=== PATIENT | male | born 1990 | race African-American/Black ===

== ENCOUNTER 2016-03-24 08:58 | Emergency (ER) | payer SELFPAY ==
[2016-03-24 09:41] LABS: Bilirubin Negative (Negative); Blood, Urine Negative (Negative); Clarity Clear (Clear); Glucose, Urine (Dipstick) Negative (Negative); Icto Negative (Negative); Leukocyte Small (Negative); Nitrite Negative (Negative); Protein, Urine (Dipstick) Negative (Neg-Trace); Specific Gravity, Urine 1.025 (1.005-1.030); Urobilinogen 0.2 mg/dL (0.2-1.0)
[2016-03-24 09:42] LABS: Bacteria/HPF Rare-Few HPF (None Seen); Other Microscopic Description C&S SET UP; RBC/HPF 0-3 HPF (0-3); Squamous Epithelial 0-3 HPF (0-3)
[2016-03-24] MEDS ORDERED: Phenazopyridine HCl 97.5 MG TABLET ONE (09:51)
[2016-03-24] MEDS ORDERED: Sulfameth/Trimethoprim DS 800-160mg TAB ONE (09:51)
--- NOTE | 2016-03-24 10:08 | ERRECORD ---
[facility] EMERGENCY RECORD HPI UTI (09:16 LLDO) CHIEF COMPLAINT: Patient presents for evaluation of urinary tract infection signs or symptoms:, dysuria, frequency, Patient presents for evaluation of started this morning. pt has hx uti. HISTORIAN: History provided by patient. LOCATION: Symptoms are localized, most severe to only dysuria at end of penis. QUALITY: Pain is dull in nature, described as BURNING. SEVERITY: Maximum severity of symptoms moderate, Currently symptoms are moderate. TIME COURSE: Sudden onset of symptoms, Symptoms are worsening, are intermittent. ASSOCIATED WITH: No associated symptoms, Denies any other complaints. EXACERBATED BY: Patient's condition exacerbated by urination. RELIEVED BY: Patient's condition relieved by nothing, Patient's condition relieved by nothing because patient has not tried anything for relief. ROS CONSTITUTIONAL: Negative constitutional review of systems. (09:18 LLDO) EYES: Negative eye review of systems, Historian denies eye pain, denies eye redness, denies eye discharge. (09:21 LLDO) ENT: Negative ears, nose, throat review of systems, Historian denies otalgia, denies rhinorrhea, denies sinus pain, denies sore throat. (09:21 LLDO) GENITOURINARY MALE: Historian reports dysuria, denies penile discharge, reports urinary frequency. IN HPI. (09:18 LLDO) MUSCULOSKELETAL: Negative musculoskeletal review of systems, Historian denies arthralgias, denies fall, denies injury, denies myalgias. (09:21 LLDO) NEUROLOGIC: Negative neurologic review of systems, Historian denies confusion, denies focal weakness, denies mental status changes, denies sensory changes. (09:21 LLDO) ALLERGIC/IMMUNOLOGIC: Normal allergy/immunologic system review, Historian denies eczema, denies environmental allergies, denies food allergies. (09:21 LLDO) PSYCHIATRIC: Negative psychiatric review of systems, Historian denies alcohol abuse, denies anxiety, denies depression, denies drug abuse, denies hallucinations. (09:21 LLDO) NOTES: All systems reviewed, negative except as described above. (09:18 LLDO) PAST MEDICAL HISTORY MEDICAL HISTORY: Past medical history includes cardiac history, unspecified arrhythmia, TACHYCARDIA. (09:11 SCHI) MALE SURGICAL HISTORY: Patient has no surgical history. (09:11 SCHI) &a-1R&a+25V*p+0X*l5998B*c202B*c15G*c2P*p-0X&a-25V&a+1R Name: Meeta Valenzuela : 1990 M26 MedRec: [id number] AcctNum: [id number] Prepared: Emilie Mar 24, 2016 23:45 by Interface Page 1 of 3 pMD [facility] EMERGENCY RECORD PSYCHIATRIC HISTORY: Notes: DENIES. (09:11 SCHI) SOCIAL HISTORY: Patient denies alcohol use, Patient denies drug use, Patient currently uses tobacco, smokes cigarettes, daily, Lives at home, with family. (09:11 SCHI) NOTES: Nursing records reviewed, Agree with nursing records, Medication list reviewed. (09:21 LLDO) KNOWN ALLERGIES No Known Drug Allergies CURRENT MEDICATIONS (09:08 SCHI) None VITAL SIGNS (09:05 SCHI) VITAL SIGNS: BP: 116/61, Pulse: 57, Resp: 18, Temp: 97.2 (Tympanic), Pain: 0, O2 sat: 100 on Room Air, Time: 03/24/2016 09:05. PHYSICAL EXAM CONSTITUTIONAL: Vital signs reviewed, Patient afebrile, Pulse normal, Blood pressure normal, Respiratory rate normal, Patient appears, uncomfortable, Patient appears in pain, in moderate pain distress, INTERMITTENT, Patient alert and oriented to person, place and time. (09:20 LLDO) HEAD: Head exam normal, Head exam included findings of head atraumatic, normocephalic. (09:21 LLDO) EYES: Eye exam normal, Eye exam included findings of eyelids normal to inspection, Pupils equally round and reactive to light, Extraocular muscles intact. (09:21 LLDO) ENT: ENT exam normal, Ear exam normal, Nose exam normal. (09:21 LLDO) NECK: Neck exam normal, Neck exam included findings of normal range of motion, Trachea midline, no meningeal signs, no tenderness. (09:21 LLDO) GENITOURINARY MALE: Genitourinary exam included findings of penis abnormal, tiny amt of inflammation at meatus. (09:20 LLDO) BACK: Back exam normal, Back exam included findings of normal inspection, range of motion normal. (09:21 LLDO) UPPER EXTREMITY: Upper extremity exam normal, Upper extremity exam included findings of inspection normal, Range of motion normal. (09:21 LLDO) LOWER EXTREMITY: Lower extremity exam normal, Lower extremity exam included findings of inspection normal, Range of motion normal. (09:21 LLDO) NEURO: Neuro exam normal, Neuro exam findings include patient oriented to person, place and time, Speech normal, Yisel coma scale 15. (09:21 LLDO) SKIN: Skin exam normal, Skin exam included findings of skin warm, dry, and normal in color, no rash. (09:21 LLDO) &a-1R&a+25V*p+0X*g5630F*c202B*c15G*c2P*p-0X&a-25V&a+1R Name: Meeta Valenzuela : 1990 M26 MedRec: [id number] AcctNum: [id number] Prepared: [facility] Mar 24, 2016 23:45 by Interface Page 2 of 3 pMD [facility] EMERGENCY RECORD PSYCHIATRIC: Psychiatric exam normal, Psychiatric exam included findings of patient oriented to person place and time, Normal affect, Judgment normal. (09:21 LLDO) MEDICATION ADMINISTRATION SUMMARY Drug Name: Septra DS, Dose Ordered: 1 tab(s), Route: Oral, Status: Given, Time: 09:52 03/24/2016, Drug Name: Pyridium, Dose Ordered: 200 mg, Route: Oral, Status: Given, Time: 09:52 03/24/2016, Detailed record available in Medication Service section. PROBLEM LIST No recorded problems DIAGNOSIS (:49 LLDO) FINAL: PRIMARY: UTI SITE NOT SPECIFIED. PRESCRIPTION (09:49 LLDO) Pyridium: TABLET : 100 mg : ORAL : Quantity: 1 Unit: tab(s) Route: ORAL Schedule: every 8 hours PRN Dispense: 15 Unit: tab(s) May substitute. Refills: 1 . Septra DS: TABLET : 800 mg-160 mg : ORAL : Quantity: 1 Unit: tab(s) Route: ORAL Schedule: 2 times a day (before meals) Dispense: 20 Unit: tab(s) May substitute. Refills: No Refills . DISPOSITION PATIENT: Disposition Type: Discharge, Disposition: *Discharge Home. (09:49 MARCOS) Patient left the department. (09:58 JUAN J) Woods: MARCOS=MD Kathy, Rj ARITA=SHILPI Huerta, Slinda &a-1R&a+25V*p+0X*p9445V*c202B*c15G*c2P*p-0X&a-25V&a+1R Name: Meeta Valenzuela : 1990 M26 MedRec: [id number] AcctNum: [id number] Prepared: Emilie Mar 24, 2016 23:45 by Interface Page 3 of 3 pMD MTDD
--- NOTE | 2016-03-24 10:13 | PICIS ---
[facility] [place] EMERGENCY RECORD TRIAGE (MonMar 24, 2016 09:08 SCHI) TRIAGE NOTES: BURNING WITH URINIATION THIS MORNING. (MonMar 24, 2016 09:08 SCHI) PATIENT: NAME: Meeta Valenzuela, AGE: 26, GENDER: male, : Mon1990, TIME OF GREET: MonMar 24, 2016 08:58, PREFERRED LANGUAGE: [place], ETHNICITY: Not or , FALL RISK: YES, ECODE BILLING MAP: [facility], SSN: [id number], Zip Code: [address], KG WEIGHT: 56.70, PHONE: , , , PERSON ID: [id number], PCP: NONE. (MonMar 24, 2016 09:08 SCHI) COMPLAINT: POSS UTI. (MonMar 24, 2016 09:08 SCHI) ADMISSION: URGENCY: 4 Non Urgent, ADMISSION SOURCE: Home, TRANSPORT: Walk-in, BED: ED -03. (MonMar 24, 2016 09:08 SCHI) ASSESSMENT: Assessment: ALERT AND ORIENTED X 4, SKIN WARM AND DRY RESP EVEN AND UNLABORED,, Symptoms began MAYBE 1 WK. (09:11 SCHI) TRIAGE SCREENING: Patient denies suicidal ideation, Patient denies presence of domestic violence. (09:11 SCHI) PROVIDERS: TRIAGE NURSE: [place] Huerta RN. (MonMar 24, 2016 09:08 SCHI) VITAL SIGNS: BP 116/61, Pulse 57, Resp 18, Temp 97.2, (Tympanic), Pain 0, O2 Sat 100, on Room Air, Time 03/24/2016 09:05. (09:05 SCHI) PREVIOUS VISIT ALLERGIES: NKDA. (MonMar 24, 2016 09:08 SCHI) NKDA. (09:11 SCHI) KNOWN ALLERGIES No Known Drug Allergies CURRENT MEDICATIONS (:08 SCHI) None VITAL SIGNS (09:05 SCHI) VITAL SIGNS: BP: 116/61, Pulse: 57, Resp: 18, Temp: 97.2 (Tympanic), Pain: 0, O2 sat: 100 on Room Air, Time: 03/24/2016 09:05. NURSING ASSESSMENT: GENITOURINARY (09:18 SCHI) CONSTITUTIONAL: Patient arrives ambulatory, Gait steady, History obtained from patient, Patient appears comfortable, Patient cooperative, Patient alert, Oriented to person, place and time, Skin warm, Skin dry, Skin normal in color, Mucous membranes pink, Mucous membranes moist, Patient is well-groomed, Patient complains of , BURNING WITH URINATION. GENITOURINARY MALE: Associated with urinary complaints described as, burning. ABDOMEN: Abdomen soft, non-tender, no associated nausea. NOTES: Emotional support needed and given, Patient tolerated procedure well. SAFETY: Side rails up, Cart/Stretcher in lowest position, Family at bedside, Hospital ID band on. NURSING PROCEDURE: DISCHARGE NOTE (09:55 SCHI) &a-1R&a+25V*p+0X*g3883Y*c202B*c15G*c2P*p-0X&a-25V&a+1R Name: Meeta Valenzuela : 1990 M26 MedRec: [id number] AcctNum: [id number] Prepared: Emilie Mar 24, 2016 23:50 by Interface Page [address] [facility] [place] EMERGENCY RECORD DISCHARGE: Patient discharged to home, ambulating without assistance, driving self, unaccompanied, Summary of Care printed/ provided, Patient requested and was provided an electronic copy of Discharge Instructions, Transition record given to patient, Discharge instructions given to patient, Simple or moderate discharge teaching performed, Prescriptions given and instructions on side effects given, Medication reconciliation form given, Above person(s) verbalized understanding of discharge instructions and follow-up care, Patient treated and evaluated by physician. BELONGINGS: Belongings and valuables with patient at time of discharge include:, Belongings remain with patient, Valuables remain with patient. NOTES: Emotional support needed and given, Patient tolerated procedure well. Notes: PT IMPROVED, PT ENCOURAGED TO RETURN TO ER WITH NEW OR WORSENING SYMPTOMS. SAFETY: Side rails up, Cart/Stretcher in lowest position, Family at bedside, Hospital ID band on. ORDER DETAILS Order Name: Culture, Urine, Status: Active, Time: 09:24 03/24/2016, User: MARCOS, - Ordered for: MD Chavez Lloyd, - Entered by: MD Chavez Lloyd - [facility] Mar 24, 2016 09:24, - Quantity: 1, Order Name: Urinalysis w/ Rflx Microscopic, Status: Active, Time: 09:24 03/24/2016, User: LL, - Ordered for: MD Chavez Lloyd, - Entered by: MD Chavez Lloyd - [facility] Mar 24, 2016 09:24, - Quantity: 1. MEDICATION ADMINISTRATION SUMMARY Drug Name: Septra DS, Dose Ordered: 1 tab(s), Route: Oral, Status: Given, Time: 09:52 03/24/2016, Drug Name: Pyridium, Dose Ordered: 200 mg, Route: Oral, Status: Given, Time: 09:52 03/24/2016, Detailed record available in Medication Service section. MEDICATION SERVICE (09:52 LLDO) Pyridium: Order: Pyridium (phenazopyridine HCl) - Dose: 200 mg : Oral Schedule: Now Ordered by: Rj Chavez MD Entered by: Rj Chavez MD [facility] Mar 24, 2016 09:48 , Acknowledged by: [place] Huerta RN [facility] Mar 24, 2016 09:50 Documented as given by: [place] Huerta RN [facility] Mar 24, 2016 09:52 Patient, Medication, Dose, Route and Time verified prior to administration. &a-1R&a+25V*p+0X*s4306H*c202B*c15G*c2P*p-0X&a-25V&a+1R Name: Meeta Valenzuela : 1990 M26 MedRec: [id number] AcctNum: [id number] Prepared: MonMar 24, 2016 23:50 by Interface Page [address] [facility] [place] EMERGENCY RECORD Site: Medication administered P.O., Correct patient, time, route, dose and medication confirmed prior to administration, Patient advised of actions and side-effects prior to administration, Allergies confirmed and medications reviewed prior to administration. Septra DS: Order: Septra DS (sulfamethoxazole/trimethoprim) - Dose: 1 tab(s) : Oral Schedule: Now Ordered by: Rj Chavez MD Entered by: Rj Chavez MD [facility] Mar 24, 2016 09:48 , Acknowledged by: [place] Huerta RN [facility] Mar 24, 2016 09:50 Documented as given by: [place] Huerta RN [facility] Mar 24, 2016 09:52 Patient, Medication, Dose, Route and Time verified prior to administration. Site: Medication administered P.O., Correct patient, time, route, dose and medication confirmed prior to administration, Patient advised of actions and side-effects prior to administration, Allergies confirmed and medications reviewed prior to administration. HPI UTI (09:16 LLDO) CHIEF COMPLAINT: Patient presents for evaluation of urinary tract infection signs or symptoms:, dysuria, frequency, Patient presents for evaluation of started this morning. pt has hx uti. HISTORIAN: History provided by patient. LOCATION: Symptoms are localized, most severe to only dysuria at end of penis. QUALITY: Pain is dull in nature, described as BURNING. SEVERITY: Maximum severity of symptoms moderate, Currently symptoms are moderate. TIME COURSE: Sudden onset of symptoms, Symptoms are worsening, are intermittent. ASSOCIATED WITH: No associated symptoms, Denies any other complaints. EXACERBATED BY: Patient's condition exacerbated by urination. RELIEVED BY: Patient's condition relieved by nothing, Patient's condition relieved by nothing because patient has not tried anything for relief. ROS CONSTITUTIONAL: Negative constitutional review of systems. (09:18 LLDO) EYES: Negative eye review of systems, Historian denies eye pain, denies eye redness, denies eye discharge. (09:21 LLDO) ENT: Negative ears, nose, throat review of systems, Historian denies otalgia, denies rhinorrhea, denies sinus pain, denies sore throat. (09:21 LLDO) GENITOURINARY MALE: Historian reports dysuria, denies penile discharge, reports urinary frequency. IN HPI. (09:18 LLDO) MUSCULOSKELETAL: Negative musculoskeletal review of systems, Historian denies arthralgias, denies fall, denies injury, denies &a-1R&a+25V*p+0X*a1709K*c202B*c15G*c2P*p-0X&a-25V&a+1R Name: Meeta Valenzuela : 1990 M26 MedRec: [id number] AcctNum: [id number] Prepared: [facility] Mar 24, 2016 23:50 by Interface Page [address] [facility] [place] EMERGENCY RECORD myalgias. (09:21 LLDO) NEUROLOGIC: Negative neurologic review of systems, Historian denies confusion, denies focal weakness, denies mental status changes, denies sensory changes. (09:21 LLDO) ALLERGIC/IMMUNOLOGIC: Normal allergy/immunologic system review, Historian denies eczema, denies environmental allergies, denies food allergies. (09:21 LLDO) PSYCHIATRIC: Negative psychiatric review of systems, Historian denies alcohol abuse, denies anxiety, denies depression, denies drug abuse, denies hallucinations. (09:21 LLDO) NOTES: All systems reviewed, negative except as described above. (09:18 LLDO) PAST MEDICAL HISTORY MEDICAL HISTORY: Past medical history includes cardiac history, unspecified arrhythmia, TACHYCARDIA. (09:11 SCHI) MALE SURGICAL HISTORY: Patient has no surgical history. (09:11 SCHI) PSYCHIATRIC HISTORY: Notes: DENIES. (09:11 SCHI) SOCIAL HISTORY: Patient denies alcohol use, Patient denies drug use, Patient currently uses tobacco, smokes cigarettes, daily, Lives at home, with family. (09:11 SCHI) NOTES: Nursing records reviewed, Agree with nursing records, Medication list reviewed. (09:21 LLDO) PHYSICAL EXAM CONSTITUTIONAL: Vital signs reviewed, Patient afebrile, Pulse normal, Blood pressure normal, Respiratory rate normal, Patient appears, uncomfortable, Patient appears in pain, in moderate pain distress, INTERMITTENT, Patient alert and oriented to person, place and time. (09:20 LLDO) HEAD: Head exam normal, Head exam included findings of head atraumatic, normocephalic. (09:21 LLDO) EYES: Eye exam normal, Eye exam included findings of eyelids normal to inspection, Pupils equally round and reactive to light, Extraocular muscles intact. (09:21 LLDO) ENT: ENT exam normal, Ear exam normal, Nose exam normal. (09:21 LLDO) NECK: Neck exam normal, Neck exam included findings of normal range of motion, Trachea midline, no meningeal signs, no tenderness. (09:21 LLDO) GENITOURINARY MALE: Genitourinary exam included findings of penis abnormal, tiny amt of inflammation at meatus. (09:20 LLDO) BACK: Back exam normal, Back exam included findings of normal inspection, range of motion normal. (09:21 LLDO) UPPER EXTREMITY: Upper extremity exam normal, Upper extremity exam included findings of inspection normal, Range of motion normal. (09:21 LLDO) &a-1R&a+25V*p+0X*c1250P*c202B*c15G*c2P*p-0X&a-25V&a+1R Name: Meeta Valenzuela : 1990 M26 MedRec: [id number] AcctNum: [id number] Prepared: MonMar 24, 2016 23:50 by Interface Page [address] [facility] [place] EMERGENCY RECORD LOWER EXTREMITY: Lower extremity exam normal, Lower extremity exam included findings of inspection normal, Range of motion normal. (09:21 LLDO) NEURO: Neuro exam normal, Neuro exam findings include patient oriented to person, place and time, Speech normal, Kodak coma scale 15. (09:21 LLDO) SKIN: Skin exam normal, Skin exam included findings of skin warm, dry, and normal in color, no rash. (09:21 LLDO) PSYCHIATRIC: Psychiatric exam normal, Psychiatric exam included findings of patient oriented to person place and time, Normal affect, Judgment normal. (09:21 LLDO) EVENTS TRANSFER: Triage to Emergency Main ED -03. (MonMar 24, 2016 09:08 SCHI) Removed from Emergency Main ED -03. (09:58 SCHI) PROBLEM LIST No recorded problems DIAGNOSIS (09:49 LLDO) FINAL: PRIMARY: UTI SITE NOT SPECIFIED. DISPOSITION PATIENT: Disposition Type: Discharge, Disposition: *Discharge Home. (09:49 LLDO) Patient left the department. (09:58 SCHI) INSTRUCTION (09:50 LLDO) DISCHARGE: UTI CYSTITIS MALE ADULT. FOLLOWUP: Follow up with Primary Care Physician in 10-14 days. SPECIAL: Follow-up with your PCP. PRESCRIPTION (09:49 LLDO) Pyridium: TABLET : 100 mg : ORAL : Quantity: 1 Unit: tab(s) Route: ORAL Schedule: every 8 hours PRN Dispense: 15 Unit: tab(s) May substitute. Refills: 1 . Septra DS: TABLET : 800 mg-160 mg : ORAL : Quantity: 1 Unit: tab(s) Route: ORAL Schedule: 2 times a day (before meals) Dispense: 20 Unit: tab(s) May substitute. Refills: No Refills . IMAGING (09:56 SCHI) *DISCHARGE INSTRUCTIONS RECEIPT: Image captured from scanner. *SUPPLY CHARGE SHEET: Image captured from scanner. ADMIN DIGITAL SIGNATURE: SHILPI Huerta, [place]. (09:58 SCHI) MD Chavez Lloyd. (23:41 LLDO) &a-1R&a+25V*p+0X*m3464Y*c202B*c15G*c2P*p-0X&a-25V&a+1R Name: Meeta Valenzuela : 1990 M26 MedRec: [id number] AcctNum: [id number] Prepared: MonMar 24, 2016 23:50 by Interface Page [address] [facility] [place] EMERGENCY RECORD RESULTS (09:45 SCHI) LABORATORY: Urine Microscopic Collection DT: MonMar 24, 2016 09:36, RBC/HPF 0-3 HPF, Range (0-3), *WBC/HPF 11-20 - H HPF, Range (0-3), Squamous Epithelial 0-3 HPF, Range (0-3), Bacteria/HPF Rare-Few HPF, Range (None Seen). Urinalysis w/ Rflx Microscopic Collection DT: MonMar 24, 2016 09:36, Color Yellow , Range (Yellow), Clarity Clear , Range (Clear), Specific [place], Urine 1.025 , Range (1.005-1.030), pH, Urine 7.0 , Range (5.0-9.0), *Leukocyte Small - H , Range (Negative), Nitrite Negative , Range (Negative), Protein, Urine (Dipstick) Negative mg/dL, Range (Neg-Trace), Glucose, Urine (Dipstick) Negative mg/dL, Range (Negative), Ketone, Urine Negative mg/dL, Range (Negative), Urobilinogen 0.2 mg/dL, Range (0.2-1.0), Bilirubin Negative , Range (Negative), Blood, Urine Negative , Range (Negative). Woods: MARCOS=MD Chavez Lloyd SCHI=SHILPI Huerta, Slinda &a-1R&a+25V*p+0X*z5478Y*c202B*c15G*c2P*p-0X&a-25V&a+1R Name: Meeta Valenzuela : 1990 6 MedRec: [id number] AcctNum: [id number] Prepared: MonMar 24, 2016 23:50 by Interface Page [address] [facility] [place] MEDICATION RECONCILIATION You were seen in the Emergency Department on: MonMar 24, 2016 KNOWN ALLERGIES No Known Drug Allergies MEDICATIONS GIVEN WHILE IN THE EMERGENCY DEPARTMENT Septra DS (sulfamethoxazole/trimethoprim) - Dose: 1 tab(s) : Oral Pyridium (phenazopyridine HCl) - Dose: 200 milligram(s) : Oral HOME MEDICATIONS None Notes from the emergency department Reviewed with patient PRESCRIPTIONS (2) Printed (2) Pyridium : TABLET : 100 mg : ORAL Quantity: 1, Unit: tab(s), Route: ORAL, Schedule: every 8 hours PRN, Dispense: 15 Unit: tab(s) &a-1R&a+25V*p+0X*z0134F*c202B*c15G*c2P*p-0X&a-25V&a+1R Name: Meeta Valenzuela : 1990 6 MedRec: [id number] AcctNum: [id number] Prepared: MonMar 24, 2016 23:50 by Interface pMD MARILYNN
== END 2016-03-24 09:55 | disposition home or self-care (01) ==
LOC: MADERS 08:58
DX: N39.0 Urinary tract infection, site not specified (principal); I49.9 Cardiac arrhythmia, unspecified; F17.210 Nicotine dependence, cigarettes, uncomplicated
CPT/HCPCS: 81003; 81015; 87086; 99283

== ENCOUNTER 2016-03-26 13:50 | Emergency (ER) | payer SELFPAY ==
[2016-03-26] MEDS ORDERED: Lidocaine 1% 20 ML MDV ONE (14:16)
[2016-03-26] MEDS ORDERED: cefTRIAXone\\ROCEPHIN 500 MG VIAL ONE (14:16)
[2016-03-26] MEDS ORDERED: Doxycycline Hyclate 100 MG TAB ONE (14:37)
[2016-03-26] MEDS ORDERED: metroNIDAZOLE 250 MG TAB ONE (14:37)
--- NOTE | 2016-03-26 14:47 | ERRECORD ---
[facility] [place] EMERGENCY RECORD HPI UTI (14:32 LLDO) CHIEF COMPLAINT: Patient presents for evaluation of urinary tract infection signs or symptoms:, dysuria, frequency, urine odor, Patient presents for evaluation of was here on Mar and had same uti sx. started on . back now saying that he is no better and has had some penile discharge he didn't have before (but has none at this time). HISTORIAN: History provided by patient. LOCATION: Symptoms are localized. QUALITY: Pain is dull in nature, described as aching, described as BURNING. SEVERITY: Maximum severity of symptoms moderate, Currently symptoms are mild. TIME COURSE: Sudden onset of symptoms, Symptoms are improving, are intermittent. ASSOCIATED WITH: Associated with genital discharge, SEE ABOVE. EXACERBATED BY: Patient's condition exacerbated by urination. RELIEVED BY: Patient's condition relieved by nothing. ROS CONSTITUTIONAL: Negative constitutional review of systems. (14:35 LLDO) EYES: Negative eye review of systems, Historian denies eye pain, denies eye redness, denies eye discharge. (14:40 LLDO) ENT: Negative ears, nose, throat review of systems, Historian denies otalgia, denies rhinorrhea, denies sinus pain, denies sore throat. (14:40 LLDO) GENITOURINARY MALE: Historian reports dysuria, reports penile discharge, reports urinary frequency. when he has a discharge it is scant and yellow-brown. (14:35 LLDO) MUSCULOSKELETAL: Negative musculoskeletal review of systems, Historian denies arthralgias, denies fall, denies injury, denies myalgias. (14:40 LLDO) NEUROLOGIC: Negative neurologic review of systems, Historian denies confusion, denies focal weakness, denies mental status changes, denies sensory changes. (14:40 LLDO) ALLERGIC/IMMUNOLOGIC: Normal allergy/immunologic system review, Historian denies eczema, denies environmental allergies, denies food allergies. (14:40 LLDO) PSYCHIATRIC: Negative psychiatric review of systems, Historian denies alcohol abuse, denies anxiety, denies depression, denies drug abuse, denies hallucinations. (14:40 LLDO) NOTES: All systems reviewed, negative except as described above. (14:35 LLDO) PAST MEDICAL HISTORY MEDICAL HISTORY: Flu vaccine not up to date, Tetanus not up to date, Pneumococcal vaccine not up to date, Past medical history includes cardiac history, &a-1R&a+25V*p+0X*d8921L*c202B*c15G*c2P*p-0X&a-25V&a+1R Name: Meeta Valenzuela : 1990 M26 MedRec: [id number] AcctNum: [id number] Prepared: Sat Mar 26, 2016 15:03 by Interface Page [address] [facility] [place] EMERGENCY RECORD unspecified arrhythmia, TACHYCARDIA. (14:02 CJEF) MALE SURGICAL HISTORY: Patient has no surgical history. (14:02 CJEF) PSYCHIATRIC HISTORY: Notes: DENIES. (14:02 CJEF) SOCIAL HISTORY: Patient denies alcohol use, Patient denies drug use, Patient currently uses tobacco, smokes cigarettes, daily, Lives at home, with family. (14:02 CJEF) NOTES: Nursing records reviewed, Agree with nursing records, Old chart reviewed, Medication list reviewed. (14:40 LLDO) KNOWN ALLERGIES No Known Drug Allergies CURRENT MEDICATIONS (14:01 CJEF) Bactrim DS: TABLET : Strength - 800 mg-160 mg : ORAL Patient Dose: Unknown. VITAL SIGNS VITAL SIGNS: BP: 124/54, Pulse: 64, Resp: 18, Temp: 97.4 (Tympanic), Pain: 0, O2 sat: 97 on Room Air, Time: 03/26/2016 13:56. (13:56 CJEF) BP: 131/65, Pulse: 62, Resp: 18, Pain: 0, O2 sat: 98 on Room Air, Time: 03/26/2016 14:50. (14:50 CJEF) PHYSICAL EXAM CONSTITUTIONAL: Vital signs reviewed, Patient afebrile, Pulse normal, Blood pressure normal, Respiratory rate normal, Patient appears non toxic, Patient appears in pain, in mild pain distress, Patient alert and oriented to person, place and time. (14:38 LLDO) HEAD: Head exam normal, Head exam included findings of head atraumatic, normocephalic. (14:40 LLDO) EYES: Eye exam normal, Eye exam included findings of eyelids normal to inspection, Pupils equally round and reactive to light, Extraocular muscles intact. (14:40 LLDO) ENT: ENT exam normal, Ear exam normal, Nose exam normal. (14:40 LLDO) NECK: Neck exam normal, Neck exam included findings of normal range of motion, Trachea midline, no meningeal signs, no tenderness. 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 (14:38 LLDO) BACK: Back exam normal, Back exam included findings of normal inspection, range of motion normal. (14:40 LLDO) UPPER EXTREMITY: Upper extremity exam normal, Upper extremity exam included findings of inspection normal, Range of motion normal. (14:40 LLDO) &a-1R&a+25V*p+0X*t2253L*c202B*c15G*c2P*p-0X&a-25V&a+1R Name: Meeta Valenzuela : 1990 M26 MedRec: [id number] AcctNum: [id number] Prepared: Sat Mar 26, 2016 15:03 by Interface Page [address] [facility] [place] EMERGENCY RECORD LOWER EXTREMITY: Lower extremity exam normal, Lower extremity exam included findings of inspection normal, Range of motion normal. (14:40 LLDO) NEURO: Neuro exam normal, Neuro exam findings include patient oriented to person, place and time, Speech normal, [place] coma scale 15. (14:40 LLDO) SKIN: Skin exam normal, Skin exam included findings of skin warm, dry, and normal in color, no rash. (14:40 LLDO) PSYCHIATRIC: Psychiatric exam normal, Psychiatric exam included findings of patient oriented to person place and time, Normal affect, Judgment normal. (14:40 LLDO) MEDICATION ADMINISTRATION SUMMARY Drug Name: doxycycline hyclate oral, Dose Ordered: 200 mg, Route: Oral, Status: Given, Time: 14:49 03/26/2016, Drug Name: Flagyl, Dose Ordered: 2 g, Route: Oral, Status: Given, Time: 14:49 03/26/2016, Drug Name: Rocephin intravenous, Dose Ordered: 500 mg, Route: Intramuscular, Status: Given, Time: 14:40 03/26/2016, Detailed record available in Medication Service section. PROBLEM LIST No recorded problems DIAGNOSIS (14:28 LLDO) FINAL: PRIMARY: NONSPECIFIC URETHRITIS. PRESCRIPTION (14:29 LLDO) doxycycline hyclate oral: CAPSULE (HARD, SOFT, ETC.) : 100 mg : ORAL : Quantity: 1 Unit: cap(s) Route: ORAL Schedule: 2 times a day (before meals) Dispense: 14 Unit: cap(s) May substitute. Refills: No Refills . NOTES: No Refills. DISPOSITION PATIENT: Disposition Type: Discharge, Disposition: *Discharge Home. (14:28 LLDO) Patient left the department. (14:55 NEAL) Woods: TRUNG=SHILPI Loving, [place] LLDO=MD Kathy, Rj &a-1R&a+25V*p+0X*b1083I*c202B*c15G*c2P*p-0X&a-25V&a+1R Name: Meeta Valenzuela : 1990 M26 MedRec: [id number] AcctNum: [id number] Prepared: Sat Mar 26, 2016 15:03 by Interface Page 3 of 3 pMD MTDD
--- NOTE | 2016-03-26 14:53 | PICIS ---
[facility] EMERGENCY RECORD TRIAGE (14:00 CJEF) TRIAGE NOTES: PT REPORTS THAT HE WAS SEEN HERE A DAY OR TWO AGO AND WAS DX WITH A BLADDER INFECTION. PT REPORTS THAT HE STARTED TAKING HIS MEDICATION YESTERDAY, WELL AZOS, AND THE SYMPTOMS ARE STILL PRESENT AND WORSE. PT REPORTS THAT HE IS TAKING BACTRIM. PT REPORTS THAT THE BACTRIM MADE HIM START TO HAVE A DISCHARGE WELL. PT STATES THAT DISCHARGE IS A YELLOW COLOR. PT REPORTS SYMTPMS ARE STINGING TO THE PENIS. PT REPORTS SOME BURNING ON URINATION. (14:00 CJEF) PATIENT: NAME: Meeta Valenzuela, AGE: 26, GENDER: male, : Mon1990, TIME OF GREET: MonMar 26, 2016 13:51, PREFERRED LANGUAGE: Sami, ETHNICITY: Not or , FALL RISK: YES, ECODE BILLING MAP: [facility], SSN: [id number], Zip Code: [address], KG WEIGHT: 56.70, PHONE: , , , PERSON ID: [id number], PCP: NONE. (14:00 CJEF) COMPLAINT: BLADDER INFECTION FOLLOW UP. (14:00 CJEF) ADMISSION: URGENCY: 4 Non Urgent, ADMISSION SOURCE: Home, TRANSPORT: Walk-in, BED: TRIAGE. (14:00 CJEF) ASSESSMENT: Assessment: UTI, DISCHARGE FROM PENIS. (14:02 CJEF) PAIN: No complaint of pain. (14:02 CJEF) IMMUNIZATIONS: Flu vaccine not up to date, Tetanus not up to date, Pneumococcal vaccine not up to date. (14:02 CJEF) SIRS SCORING: Heart Rate 55-109 (0), Temp range 96.8-101.1 (0), respiratory rate 12-24 (0), Mental Status altered: no (0), Infection or Suspected Infection: No. (14:02 CJEF) TRIAGE SCREENING: Patient denies suicidal ideation, Patient denies presence of domestic violence. (14:02 CJEF) PROVIDERS: TRIAGE NURSE: Chica Loving RN. (14:00 CJEF) VITAL SIGNS: BP 124/54, Pulse 64, Resp 18, Temp 97.4, (Tympanic), Pain 0, O2 Sat 97, on Room Air, Time 03/26/2016 13:56. (13:56 CJEF) PREVIOUS VISIT ALLERGIES: No Known Drug Allergies. (14:00 CJEF) No Known Drug Allergies. (14:02 CJEF) KNOWN ALLERGIES No Known Drug Allergies CURRENT MEDICATIONS (14:01 CJEF) Bactrim DS: TABLET : Strength - 800 mg-160 mg : ORAL Patient Dose: Unknown. VITAL SIGNS VITAL SIGNS: BP: 124/54, Pulse: 64, Resp: 18, Temp: 97.4 (Tympanic), Pain: 0, O2 sat: 97 on Room Air, Time: 03/26/2016 13:56. (13:56 CJEF) BP: 131/65, Pulse: 62, Resp: 18, Pain: 0, O2 sat: 98 on Room Air, Time: 03/26/2016 14:50. (14:50 CJEF) &a-1R&a+25V*p+0X*z2515E*c202B*c15G*c2P*p-0X&a-25V&a+1R Name: Meeta Valenzuela : 1990 M26 MedRec: [id number] AcctNum: [id number] Prepared: Sat Mar 26, 2016 15:10 by Interface Page 1 of 7 pMD [facility] EMERGENCY RECORD NURSING ASSESSMENT: GENITOURINARY (14:02 CJEF) CONSTITUTIONAL: Complex assessment performed, Patient arrives ambulatory, Gait steady, History obtained from patient, Patient appears comfortable, Patient cooperative, Patient alert, Oriented to person, place and time, Skin warm, Skin dry, Skin normal in color, Mucous membranes pink, Mucous membranes moist, Patient, poorly groomed, with poor personal hygiene, PT REPORTS THAT HE WAS SEEN HERE A DAY OR TWO AGO AND WAS DX WITH A BLADDER INFECTION. PT REPORTS THAT HE STARTED TAKING HIS MEDICATION YESTERDAY, WELL AZOS, AND THE SYMPTOMS ARE STILL PRESENT AND WORSE. PT REPORTS THAT HE IS TAKING BACTRIM. PT REPORTS THAT THE BACTRIM MADE HIM START TO HAVE A DISCHARGE WELL. PT STATES THAT DISCHARGE IS A YELLOW COLOR. PT REPORTS SYMTPMS ARE STINGING TO THE PENIS. PT REPORTS SOME BURNING ON URINATION. PAIN MALE: Patient rates pain as 0 out of 10. GENITOURINARY MALE: Associated with urinary complaints described as, Notes: STINGING TO PENIS INTERMITTENTLY. PT REPORTS YELLOW DISCHARGE FROM PENIS. ABDOMEN: Abdomen assessment findings include abdomen symmetrical, Abdomen soft, non-tender, Bowel sound normal, no associated nausea, no associated vomiting, no associated diarrhea, no associated constipation. NOTES: Patient tolerated procedure well. SAFETY: Side rails up, Cart/Stretcher in lowest position, Family at bedside, Call light within reach, Hospital ID band on. NURSING PROCEDURE: DISCHARGE NOTE (14:55 CJ) DISCHARGE: Patient discharged to home, ambulating without assistance, driving self, unaccompanied, Summary of Care printed/ provided, Patient requested and was provided an electronic copy of Discharge Instructions, Transition record given to patient, Discharge instructions given to patient, Simple or moderate discharge teaching performed, Prescriptions given and instructions on side effects given, Medication reconciliation form given, Above person(s) verbalized understanding of discharge instructions and follow-up care, Patient treated and evaluated by physician. BELONGINGS: Belongings remain with patient. NOTES: Patient tolerated procedure well. SAFETY: Side rails up, Cart/Stretcher in lowest position, Family at bedside, Call light within reach, Hospital ID band on. NURSING PROCEDURE: NURSE NOTES (14:49 [facility]) NURSES NOTES: Patient in no apparent distress, Patient resting quietly, Notes: PT RESTING IN BED WATCHING TV. NO DISTRESS NOTED. MEDICATION ADMINISTRATION SUMMARY Drug Name: doxycycline hyclate oral, Dose Ordered: 200 mg, Route: Oral, Status: Given, Time: 14:49 03/26/2016, &a-1R&a+25V*p+0X*m6427E*c202B*c15G*c2P*p-0X&a-25V&a+1R Name: Meeta Valenzuela : 1990 M26 MedRec: [id number] AcctNum: [id number] Prepared: Sat Mar 26, 2016 15:10 by Interface Page 2 of 7 pMD [facility] EMERGENCY RECORD Drug Name: Flagyl, Dose Ordered: 2 g, Route: Oral, Status: Given, Time: 14:49 03/26/2016, Drug Name: Rocephin intravenous, Dose Ordered: 500 mg, Route: Intramuscular, Status: Given, Time: 14:40 03/26/2016, Detailed record available in Medication Service section. MEDICATION SERVICE doxycycline hyclate oral: Order: doxycycline hyclate oral (doxycycline hyclate) - Dose: 200 mg : Oral Schedule: Now Ordered by: Rj Chavez MD Entered by: Rj Chavez MD Sat Mar 26, 2016 14:28 Documented as given by: Chica Loving RN Sat Mar 26, 2016 14:49 Patient, Medication, Dose, Route and Time verified prior to administration. Amount given: 200 mg, Site: Medication administered P.O., Mouth check performed after administration of medication, Patient appears Awake and alert- acceptable, Correct patient, time, route, dose and medication confirmed prior to administration, Patient advised of actions and side-effects prior to administration, Allergies confirmed and medications reviewed prior to administration, Patient tolerated procedure well, Patient in position of comfort, Side rails up, Cart in lowest position, Family at bedside. : Follow Up : Response assessment performed, No signs or symptoms of allergic reaction noted, Advised not to ambulate without assistance, Patient in position of comfort, Side rails up, Cart in lowest position, Family at bedside. (14:54 [facility]) Flagyl: Order: Flagyl (metronidazole) - Dose: 2 g : Oral Schedule: Now Ordered by: Rj Chavez MD Entered by: Rj Chavez MD Sat Mar 26, 2016 14:27 Documented as given by: Chica Loving RN Sat Mar 26, 2016 14:49 Patient, Medication, Dose, Route and Time verified prior to administration. Amount given: 2 g, Site: Medication administered P.O., Mouth check performed after administration of medication, Patient appears Awake and alert- acceptable, Correct patient, time, route, dose and medication confirmed prior to administration, Patient advised of actions and side-effects prior to administration, Allergies confirmed and medications reviewed prior to administration, Patient tolerated procedure well, Patient in position of comfort, Side rails up, Cart in lowest position, Family at bedside. : Follow Up : Response assessment performed, No signs or symptoms of allergic reaction noted, Advised not to ambulate without assistance, Patient in position of comfort, Side rails up, Cart in lowest position, Family at bedside. (14:54 [facility]) Rocephin intravenous: Order: Rocephin intravenous (ceftriaxone sodium) - Dose: 500 mg : Intramuscular Schedule: Now &a-1R&a+25V*p+0X*k2166B*c202B*c15G*c2P*p-0X&a-25V&a+1R Name: Meeta Valenzuela : 1990 M26 MedRec: [id number] AcctNum: [id number] Prepared: Sat Mar 26, 2016 15:10 by Interface Page 3 of 7 pMD [facility] EMERGENCY RECORD Ordered by: Rj Chavez MD Entered by: Rj Chavez MD Sat Mar 26, 2016 14:13 Documented as given by: Chica Loving RN Sat Mar 26, 2016 14:40 Patient, Medication, Dose, Route and Time verified prior to administration. IM antibiotic, Amount given: 500mg, Medication administered to left buttock, Patient appears Awake and alert- acceptable, Correct patient, time, route, dose and medication confirmed prior to administration, Patient advised of actions and side-effects prior to administration, Allergies confirmed and medications reviewed prior to administration, Patient tolerated procedure well, Patient in position of comfort, Side rails up, Cart in lowest position, Family at bedside. : Follow Up : Response assessment performed, No signs or symptoms of allergic reaction noted, Advised not to ambulate without assistance, Patient in position of comfort, Side rails up, Cart in lowest position, Family at bedside. (14:55 CJ) HPI UTI (14:32 LLDO) CHIEF COMPLAINT: Patient presents for evaluation of urinary tract infection signs or symptoms:, dysuria, frequency, urine odor, Patient presents for evaluation of was here on Mar and had same uti sx. started on . back now saying that he is no better and has had some penile discharge he didn't have before (but has none at this time). HISTORIAN: History provided by patient. LOCATION: Symptoms are localized. QUALITY: Pain is dull in nature, described as aching, described as BURNING. SEVERITY: Maximum severity of symptoms moderate, Currently symptoms are mild. TIME COURSE: Sudden onset of symptoms, Symptoms are improving, are intermittent. ASSOCIATED WITH: Associated with genital discharge, SEE ABOVE. EXACERBATED BY: Patient's condition exacerbated by urination. RELIEVED BY: Patient's condition relieved by nothing. ROS CONSTITUTIONAL: Negative constitutional review of systems. (14:35 LLDO) EYES: Negative eye review of systems, Historian denies eye pain, denies eye redness, denies eye discharge. (14:40 LLDO) ENT: Negative ears, nose, throat review of systems, Historian denies otalgia, denies rhinorrhea, denies sinus pain, denies sore throat. (14:40 LLDO) GENITOURINARY MALE: Historian reports dysuria, reports penile discharge, reports urinary frequency. when he has a discharge it is scant and yellow-brown. (14:35 LLDO) MUSCULOSKELETAL: Negative musculoskeletal review of systems, &a-1R&a+25V*p+0X*d4118R*c202B*c15G*c2P*p-0X&a-25V&a+1R Name: Meeta Valenzuela : 1990 M26 MedRec: [id number] AcctNum: [id number] Prepared: Raji Mar 26, 2016 15:10 by Interface Page 4 of 7 pMD [facility] EMERGENCY RECORD Historian denies arthralgias, denies fall, denies injury, denies myalgias. (14:40 LLDO) NEUROLOGIC: Negative neurologic review of systems, Historian denies confusion, denies focal weakness, denies mental status changes, denies sensory changes. (14:40 LLDO) ALLERGIC/IMMUNOLOGIC: Normal allergy/immunologic system review, Historian denies eczema, denies environmental allergies, denies food allergies. (14:40 LLDO) PSYCHIATRIC: Negative psychiatric review of systems, Historian denies alcohol abuse, denies anxiety, denies depression, denies drug abuse, denies hallucinations. (14:40 LLDO) NOTES: All systems reviewed, negative except as described above. (14:35 LLDO) PAST MEDICAL HISTORY MEDICAL HISTORY: Flu vaccine not up to date, Tetanus not up to date, Pneumococcal vaccine not up to date, Past medical history includes cardiac history, unspecified arrhythmia, TACHYCARDIA. (14:02 CJEF) MALE SURGICAL HISTORY: Patient has no surgical history. (14:02 CJEF) PSYCHIATRIC HISTORY: Notes: DENIES. (14:02 CJEF) SOCIAL HISTORY: Patient denies alcohol use, Patient denies drug use, Patient currently uses tobacco, smokes cigarettes, daily, Lives at home, with family. (14:02 CJEF) NOTES: Nursing records reviewed, Agree with nursing records, Old chart reviewed, Medication list reviewed. (14:40 LLDO) PHYSICAL EXAM CONSTITUTIONAL: Vital signs reviewed, Patient afebrile, Pulse normal, Blood pressure normal, Respiratory rate normal, Patient appears non toxic, Patient appears in pain, in mild pain distress, Patient alert and oriented to person, place and time. (14:38 LLDO) HEAD: Head exam normal, Head exam included findings of head atraumatic, normocephalic. (14:40 LLDO) EYES: Eye exam normal, Eye exam included findings of eyelids normal to inspection, Pupils equally round and reactive to light, Extraocular muscles intact. (14:40 LLDO) ENT: ENT exam normal, Ear exam normal, Nose exam normal. (14:40 LLDO) NECK: Neck exam normal, Neck exam included findings of normal range of motion, Trachea midline, no meningeal signs, no tenderness. 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 (14:38 LLDO) BACK: Back exam normal, Back exam included findings of normal inspection, range of motion normal. (14:40 LLDO) &a-1R&a+25V*p+0X*o3991X*c202B*c15G*c2P*p-0X&a-25V&a+1R Name: Meeta Valenzuela : 1990 M26 MedRec: [id number] AcctNum: [id number] Prepared: Sat Mar 26, 2016 15:10 by Interface Page 5 of 7 pMD [facility] EMERGENCY RECORD UPPER EXTREMITY: Upper extremity exam normal, Upper extremity exam included findings of inspection normal, Range of motion normal. (14:40 LLDO) LOWER EXTREMITY: Lower extremity exam normal, Lower extremity exam included findings of inspection normal, Range of motion normal. (14:40 LLDO) NEURO: Neuro exam normal, Neuro exam findings include patient oriented to person, place and time, Speech normal, [place] coma scale 15. (14:40 LLDO) SKIN: Skin exam normal, Skin exam included findings of skin warm, dry, and normal in color, no rash. (14:40 LLDO) PSYCHIATRIC: Psychiatric exam normal, Psychiatric exam included findings of patient oriented to person place and time, Normal affect, Judgment normal. (14:40 LLDO) EVENTS TRANSFER: Triage to Emergency Triage. (Sat Mar 26, 2016 14:00 CJEF) Emergency Triage to Main ED -05. (14:04 CJEF) Removed from Emergency Main ED -05. (14:55 CJEF) PROBLEM LIST No recorded problems DIAGNOSIS (14:28 LLDO) FINAL: PRIMARY: NONSPECIFIC URETHRITIS. DISPOSITION PATIENT: Disposition Type: Discharge, Disposition: *Discharge Home. (14:28 LLDO) Patient left the department. (14:55 CJEF) INSTRUCTION (14:31 LLDO) DISCHARGE: URETHRITIS STD SUSPECTED CULTURE ONLY. FOLLOWUP: Follow up with Primary Care Physician in 7-10 days. SPECIAL: No sex until all meds gone and you are cleared by your primary physician. Follow-up with your PCP. PRESCRIPTION (14:29 LLDO) doxycycline hyclate oral: CAPSULE (HARD, SOFT, ETC.) : 100 mg : ORAL : Quantity: 1 Unit: cap(s) Route: ORAL Schedule: 2 times a day (before meals) Dispense: 14 Unit: cap(s) May substitute. Refills: No Refills . NOTES: No Refills. IMAGING (14:56 CJEF) *DISCHARGE INSTRUCTIONS RECEIPT: Image captured from scanner. *SUPPLY CHARGE SHEET: Image captured from scanner. &a-1R&a+25V*p+0X*g9646A*c202B*c15G*c2P*p-0X&a-25V&a+1R Name: Meeta Valenzuela : 1990 M26 MedRec: [id number] AcctNum: [id number] Prepared: Sat Mar 26, 2016 15:10 by Interface Page 6 of 7 pMD [facility] EMERGENCY RECORD ADMIN (14:41 LLDO) DIGITAL SIGNATURE: MD Kathy, Rj. MD Kathy, Rj. MD Kathy, Rj. MD Kathy, Rj. MD Kathy, Rj. MD Kathy, Rj. MD Kathy, Rj. MD Kathy, Rj. Woods: TRUNG=SHILPI Loving, [place] [facility]=MD Kathy, Rj &a-1R&a+25V*p+0X*e9337C*c202B*c15G*c2P*p-0X&a-25V&a+1R Name: Meeta Valenzuela : 1990 6 MedRec: [id number] AcctNum: [id number] Prepared: Sat Mar 26, 2016 15:10 by Interface Page 7 of 7 pMD [facility] MEDICATION RECONCILIATION You were seen in the Emergency Department on: Sat Mar 26, 2016 KNOWN ALLERGIES No Known Drug Allergies MEDICATIONS GIVEN WHILE IN THE EMERGENCY DEPARTMENT Rocephin intravenous (ceftriaxone sodium) - Dose: 500 milligram(s) : Intramuscular Flagyl (metronidazole) - Dose: 2 gram(s) : Oral doxycycline hyclate oral (doxycycline hyclate) - Dose: 200 milligram(s) : Oral HOME MEDICATIONS CONTINUE PRESCRIBED Bactrim DS : TABLET : Strength - 800 mg-160 mg : ORAL Continue as prescribed Patient had been taking: Dose unknown Notes from the emergency department Reviewed with patient PRESCRIPTIONS (1) &a-1R&a+25V*p+0X*i3707P*c202B*c15G*c2P*p-0X&a-25V&a+1R Name: Meeta Valenzuela : 1990 6 MedRec: [id number] AcctNum: [id number] Prepared: Sat Mar 26, 2016 15:10 by Interface [facility]
== END 2016-03-26 14:55 | disposition home or self-care (01) ==
LOC: MADERS 13:50
DX: N34.1 Nonspecific urethritis (principal); F17.210 Nicotine dependence, cigarettes, uncomplicated
CPT/HCPCS: 96372; J0696; J2001

== ENCOUNTER 2017-08-05 19:21 | Emergency (ER) | payer SELFPAY ==
[2017-08-08 21:56] LABS: Chlamydia by PCR Not Detected (NotDetected); GC by PCR Not Detected (NotDetected)
== END 2017-08-05 20:22 | disposition home or self-care (01) ==
LOC: MADERS 19:21
DX: Z11.3 Encounter for screening for infections with a predominantly sexual mode of transmission (principal); F17.210 Nicotine dependence, cigarettes, uncomplicated
CPT/HCPCS: 87491; 87591; 99283